=== PATIENT | male | born 1985 | race African-American/Black ===

== ENCOUNTER 2024-06-03 11:12 | Outpatient (REF) | payer MEDICAID, SELFPAY ==
[2024-06-03 13:32] LABS: Appearance Urine Clear; Color Urine Yellow; Glucose Urine UA Negative (Negative); Leukocyte Esterase Urine Negative (Negative); Nitrite Urine Negative (Negative); PH 5.5 (5.0-9.0); Urine Blood Negative (Negative); Urine Ketones Negative (Negative); Urine Protein Negative (Neg-Trace)
[2024-06-03 13:39] LABS: Bacteria Urine None Seen (None Seen); Hyaline Casts Urine 0-2 /LPF (0-2); RBC Urine 0-2 /HPF (0-2); WBC Urine 0-5 /HPF (0-5)
[2024-06-03 14:34] LABS: Alanine Aminotransferase 18 U/L (0-40); Albumin Level 4.5 g/dL (3.5-5.0); Alkaline Phosphatase 70 U/L (39-117); Anion Gap 13 (12-20); Aspartate Amino Transferase 20 U/L (5-37); Bilirubin Total 0.4 mg/dL (0.0-1.0); Blood Urea Nitrogen 15 mg/dL (9-16); Calcium 10.1 mg/dL (8.4-10.2); Carbon Dioxide 26 mmol/L (22-29); Chloride 103 mmol/L (96-108); Estimated Glomerular Filt Rate > 60; Glucose Random 82 mg/dL (60-115); Potassium 3.8 mmol/L (3.3-5.1); Sodium 138 mmol/L (135-145); Total Protein 7.6 g/dL (6.5-8.0)
[2024-06-03 14:39] LABS: TSH reflex Free T4 1.61 uIU/mL (0.32-4.0)
== END 2024-06-03 11:13 | disposition home or self-care (01) ==
LOC: HO.HHCL 11:12
PROVIDERS: Visit Provider Internal Medicine
DX: I10 Essential (primary) hypertension (principal); K59.00 Constipation, unspecified
CPT/HCPCS: 36415; 80053; 81001; 84443

== ENCOUNTER 2025-06-24 10:23 | Outpatient (REF) | payer MEDICAID, SELFPAY ==
--- OUTSIDE RECORDS SUMMARY | 2025-06-24 09:15 | XMS_ITS | Encounter Summary ---
Author Organization [employer] Address [address] [place] [address] [address], [place] [address] Care Team Providers Care Hemming And Tacking Machine Operator Name Role Phone Brent Dinero Primary Care Provider [phone] Reason for Referral * Hospital - Outpatient (Routine) - Authorized Specialty Diagnoses / Procedures Referred By Apurva reyes Referred To Contact Diagnoses FRANCHESCA (obstructive sleep apnea) Procedures Polysomnography Brent Dinero FNP [address] [place] [address] Phone: tel: fax: [address] [address] Phone: tel: fax: Referral ID Status Reason Start Date Expiration Date V isits Requested Visits Authorized [id number] Authorized 06/24/2025 06/24/2026 1 1 * Consultation (Routine) - Authorized Specialty Diagnoses / Procedures Referred By Apurva reyes Referred To Contact Nutrition Diagnoses Encounter for weight management Brent Dinero FNP [address] [place] [address] Phone: tel: fax: Referral ID Status Reason Start Date Expiration Date Visits Requested Visits Authorized [id number] Authorized Consult and Treat 06/24/2025 06/24/2026 1 1 * Consultation (Routine) - Pending Review Specialty Diagnoses / Procedures Referred By Apurva reyes Referred To Contact Sleep Medicine Diagnoses FRANCHESCA (obstructive sleep apnea) Brent Dinero FNP [address] [place] [address] Phone: tel: fax: [facility] [address], [address] [place] [address] Phone: tel: fax: Referral ID Status Reason Start Date Expiration Date Visits Requested Visits Authorized [id number] Pending Review Specialty Services Required 06/24/2025 06/24/2026 1 1 Encounter Details Date Type Department Care Team (Late st Contact Info) Description 06/24/2025 9:15 AM EST Office Visit [facility] MEDICINE [address] [place] [address] Brent Dinero FNP [address] [place] [address] Encounter to establish care (Primary Dx); Primary hypertension; Episodic cluster headache, not intractable; FRANCHESCA (obstructive sleep apnea); Essential hypertension, benign; Encounter for weight management; Tobacco use disorder; Benign prostatic hyperplasia with weak urinary stream Social History Tobacco Use Types Packs/Day Years Used Date Smoking Tobacco: Every Day Cigarettes Passive Smoke Exposure: Current Smokeless Tobacco: Never Tobacco Cessation:Ready to Q uit: Not Asked; Counseling Given: Not Answered Alcohol Answer Date Recorded How often do you have a drink containing alcohol ? 0 06/24/2025 How many drinks containing a lcohol do you have on a typical day when you are drinking? 0 06/24/2025 How often do you have six or more drinks on one occasion? 0 06/24/2025 Depression Answer Date Recorded Patient Health Questionnaire-9 Score 0 06/24/2025 Patient Health Questionnaire-9 Score 0 06/24/2025 Last PHQ-9: Questionnaire Data Not on file 1 08/25/2024 Housing Stability Answer Date Recorded What is your housing situation today? I have kiara jaime 06/15/[address] you li ve. Do you have problems with any of the following? None of the above 06/15/2025 Food Insecurity Answer Date Recorded Within the past 12 months, y ou worried that your food would run out before you got money to buy more: Never True 06/15/2025 Within the past 12 months,th e food you bought just didn't last and you didn't have enough money to get more: Never True Transportation Answer Date Recorded In the past 12 months, has l ack of transportation kept you from medical appts, meetings, work or from getting things needed for daily living? No 06/15/2025 Utilities Answer Date Recorded In the past 12 months, has t he electric, gas, oil or water company threatened to shut off services in your home? No 06/15/2025 Depression Answer Date Recorded Patient Health Questionnaire-2 Score 0 06/24/2025 Internet Access Answer Date Recorded Internet Access Q1 No 06/24/2025 Internet Access Q2 I do not want or need it 09/2024 Sex and Gender Information Value Date Recorded Sex Assigned at Male 05/19/2024 9:50 AM EDT Legal Sex Male 2:09 PM EDT Gender Identity Male 05/19/2024 9:50 AM EDT Sexual Orientation Straight 06/03/2024 9: 59 AM EST documented as of this encounter Last Filed Vital Signs Vital Sign Reading Time Taken Comments Blood Pressure 149/115 06/24/2025 9:38 AM EST Pulse 74 06/24/2025 9:38 AM EST Temperature 37 C (98.6 F) 06/24/2025 9:38 AM EST Respiratory Rate 12 06/24/2025 9:38 AM EST Oxygen Saturation 97% 06/24/2025 9:38 AM EST Inhaled Oxygen Concentration - - Weight 94.4 kg (208 lb 3.2 oz) 06/24/2025 9:38 A M EST Height 175.3 cm (5' 9 ) 06/24/2025 9:38 AM EST Body Mass Index 30.75 06/24/2025 9:38 AM EST documented in this encounter Functional Status * Over the past 2 weeks, how often have you been bothered by any of the following problems? Question Answer Date of Assessment Author Patient Health Questionnaire -2 Score 0 06/24/2025 9:39 AM Geo Ricks [place] * Little interest or pleasure in doing things Answer Date of Assessment Author Not at all 06/24/2025 9:39 AM Divine Ricks [place] * Feeling down, depressed, or hopeless Answer Date of Assessment Author Not at all 06/24/2025 9:39 AM Divine Ricks [place] * Trouble falling or staying asleep, or sleeping too much Answer Date of Assessment Author Not at all 06/24/2025 9:39 AM Divine Ricks [place] * Feeling tired or having little energy Answer Date of Assessment Author Not at all 06/24/2025 9:39 AM Divine Ricks [place] * Poor appetite or overeating Answer Date of Assessment Author Not at all 06/24/2025 9:39 AM Divine Ricks [place] * Feeling bad about yourself - or that you are a failure or have let yourself or your family down Answer Date of Assessment Author Not at all 06/24/2025 9:39 AM Divine Ricks [place] * Trouble concentrating on things, such as reading the newspaper or watching television Answer Date of Assessment Author Not at all 06/24/2025 9:39 AM Divine Ricks [place] * Moving or speaking so slowly that other people could have noticed? Or the opposite - being so fidgety or restless that you have been moving around a lot more than usual. Answer Date of Assessment Author Not at all 06/24/2025 9:39 AM Divine Ricks [place] * Thoughts that you would be better off or hurting yourself in some way Answer Date of Assessment Author Not at all 06/24/2025 9:39 AM Divine Ricks [place] * Patient Health Questionnaire-9 Score Answer Date of Assessment Author 0 06/24/2025 9:39 AM Divine Ricks [place] * Over the last 2 weeks, how often have you been bothered by any of the following problems? Question Answer Date of Assessment Author Feeling nervous, anxious, or on edge 0 06/24/2025 9:39 AM Geo Ricks [place] Not being able to stop or co ntrol worrying 0 06/24/2025 9:39 AM Geo Ricks [place] Worrying too much about diff erent things 0 06/24/2025 9:39 AM EST Geo Hermosillo [place] Trouble relaxing 0 06/24/2025 9:39 AM EST Areli maurerGeo rosario [place] Being so restless that it is hard to sit still 0 06/24/2025 9:39 AM EST Geo Hermosillo [place] Becoming easily annoyed or irritable 0 06/24/2025 9:39 AM Geo Ricks [place] Feeling afraid as if somethi ng awful might happen 0 06/24/2025 9:39 AM EST Geo Hermosillo [place] DAMARIS-7 Total Score 0 06/24/2025 9:39 AM Geo Ricks [place] documented as of this encounter Miscellaneous Notes * Assessment & Plan Note - CONNIE Osborne - 06/24/2025 9:15 AM EST Associated Problem(s): Essential hypertension, benign Will address at next visit. Orders: amLODIPine (Norvasc) 5 MG tablet; Take 1 tablet (5 mg) by mouth Once per day. Comprehensive Metabolic Panel; Future documented in this encounter Plan of Treatment Upcoming Encounters Date Type Department Care Team (Late st Contact Info) Description 07/22/2025 3:30 PM EST Office Visit [facility] MEDICINE [address] [place] [address] Bernt Dinero FNP [address] [place] [address] Scheduled Orders Name Type Priority Associated Diagnoses Orde r Schedule POCT Glucose Point of Care Testing Routine Encounter to establish care Ordered: 06/24/2025 POCT Hgb A1c Point of Care Testing Routine Encounter to establish care Ordered: 06/24/2025 CBC auto differential Lab Routine Encounter to establish care Expected: 06/24/2025 (Approximate), Expires: 06/24/2026 Polysomnography [facility] Routine FRANCHESCA (obstructive sleep apnea) Expected: 06/24/2025 (Approximate), Expires: 06/24/2026 Scheduled Referrals Name Type Priority Associated Diagnoses Orde r Schedule Referral to Sleep Medicine Outpatient Referral Routine FRANCHESCA (obstructive sleep apnea) Expected: 06/24/2025 (Approximate), Expires: 06/24/2026 Referral to Nutrition Therapy Outpatient Referral Routine Encounter for weight management Expected: 06/24/2025 (Approximate), Expires: 06/24/2026 documented as of this encounter Procedures Procedure Name Priority Date/Time Associated Diagnosis Comments CBC WITH AUTO DIFFERENTIAL Routine 06/24/2025 10:28 AM EST Encounter to establish care LIPID PANEL, STANDARD Routine 06/24/2025 10:28 AM EST Encounter to establish care COMPREHENSIVE METABOLIC PANEL Routine 06/24/2025 10:28 AM EST Essential hypertension, benign documented in this encounter Results * (ABNORMAL) Comprehensive Metabolic Panel (06/24/2025 10:28 AM EST) Sodium 139 135 - 145 mmol/L [facility] Potassium 3.9 3.3 - 5.1 mmol/L [facility] Chloride 104 96 - 108 mmol/L [facility] Carbon Dioxide 30(H) 22 - 29 mmol/L [facility] Anion Gap 9(L) 12 - 20 [facility] Urea Nitrogen (BUN) 14 9 - 16 mg/dL [facility] Creatinine, Serum 1.03 0.5 - 1.4 mg/dL [facility] Estimated Glomerular Filt Rate >60 [facility] Comment:Chronic Kidney Disea se: Estimated GFR < 60 mL/min/[id number] Kidney Disease: Estimated GFR < 15 mL/min/1.73m2 Glucose 85 60 - 115 mg/dL [facility] Calcium 10.1 8.4 - 10.2 mg/dL [facility] Bilirubin, Total 0.7 0.0 - 1.0 mg/dL [facility] Aspartate Amino Transferase 22 5 - 37 U/L [facility] Alanine Aminotransferase 19 0 - 40 U/L [facility] Total Protein 7.8 6.5 - 8.0 g/dL [facility] Albumin Level 5.0 3.5 - 5.0 g/dL [facility] Alkaline Phosphatase 72 39 - 117 U/L [facility] Blood Venous blood specimen / Unknown 06/24/2025 10:28 AM EST 06/24/2025 11:22 AM EST Brent Dinero [facility] BLOOD ORDERABLES Final Re sult Performing Organization Address [facility] de Phone Number [facility] [address] [place] [address] [phone] * (ABNORMAL) Lipid Panel, Standard (06/24/2025 10:28 AM EST) Triglycerides 166(H) <150 mg/dL [facility] Comment:Desirable Triglyceri de: less than 150 mg/dLBorderline High Triglyceride 150-199 mg/dLHigh Triglyceride: 200-499 mg/dLVery High Triglyceride: greater than or equal to 5OO mg/dL Cholesterol 232(H) <200 mg/dL [facility] Comment:Desirable Cholestero l: less than 200 mg/dLBorderline High Cholesterol: 200-239 mg/dLHigh Cholesterol: greater than 239 mg/dL LDL Cholesterol Calculated 153(H) <100 mg/dL [facility] Comment:Desirable LDL: less than 100 mg/dLNear Optimal/Above Optimal LDL: 110- 129 mg/dLBorderline High LDL: 130-159 mg/dLHigh LDL: 160-189 mg/dLVery High LDL: greater than or equal to 190 mg/dL HDL Cholesterol 46 >40 mg/dL [facility] Comment:Desirable HDL: great er than 40 mg/dL Note: This HDL assay may give artificially low results in patients with liver disease. Blood Venous blood specimen / Unknown 06/24/2025 10:28 AM EST 06/24/2025 11:22 AM EST Brent Dinero [facility] BLOOD ORDERABLES Final Re sult Performing Organization Address City/[facility]/ZIP Co de Phone Number [facility] [address] [place] [address] [phone] * (ABNORMAL) CBC auto differential (06/24/2025 10:28 AM EST) White Blood Count 6.2 4.8 - 10.8 X10*3/uL [facility] Red Blood Count 4.82 4.60 - 5.80 X10*6/uL [facility] Hemoglobin 15.1 14.0 - 18.0 g/dl [facility] Hematocrit 43.4 42.0 - 52.0 % [facility] Mean Corpuscular Volume 90.0 80.0 - 98.0 fL [facility] Mean Corpuscular Hemoglobin 31.3 27.0 - 33.0 pg [facility] Mean Corpuscular HGB Conc 34.8 31.0 - 36.0 g/dl [facility] Red Cell Distribution Width 12.1 11.0 - 16.0 % [facility] Platelet Count 166 160 - 400 X10*3/uL [facility] Mean Platelet Volume 12.2 9.4 - 12.4 fL [facility] Neutrophils Percent Auto 38.7(L) 45 - 73 % [facility] Imm Gran Pct Auto 0.3 0.0 - 0.4 % [facility] Lymphocytes Percent Auto 46.8(H) 20 - 40 % [facility] Monocytes Percent Auto 10.6 2 - 11 % [facility] Eosinophils Percent Auto 2.8 0 - 4 % [facility] Basophils Percent Auto 0.8 0 - 2 % [facility] NRBC Pct Auto 0.0 0.0 - 0.2 /100WBC [facility] Neutrophils Absolute Auto 2.4 2.0 - 8.3 x10*3/uL [facility] Imm Gran Abs Auto 0.02 0.00 - 0.03 X10*3/uL [facility] Lymphocytes Absolute Auto 2.9 1.2 - 4.9 X10*3/uL [facility] Monocytes Absolute Auto 0.7 0.1 - 1.2 X10*3/uL [facility] Eosinophils Absolute Auto 0.2 0.0 - 0.4 X10*3/uL [facility] Basophils Absolute Auto 0.1 0.0 - 0.2 X10*3/uL [facility] NRBC Abs Auto 0.000 0.0 - 0.012 X10*3/uL [facility] Blood Venous blood specimen / Unknown 06/24/2025 10:28 AM EST 06/24/2025 11:22 AM EST Brent ROSALES LAB BLOOD ORDERABLES Final Re sult [facility] [address] [place] [address] [phone] documented in this encounter Visit Diagnoses Diagnosis Encounter to establish care- Primary Primary hypertension Unspecified essential hypertension Episodic cluster headache, not intractable FRANCHESCA (obstructive sleep apnea) Obstructive sleep apnea (adult) (pediatric) Essential hypertension, benign Encounter for weight management Tobacco use disorder Benign prostatic hyperplasia with weak urinary stream documented in this encounter Additional Health Concerns Assessment Noted Time PHQ-9 Depression Total Score: 0 06/24/20 9:39 AM EST documented as of this encounter Care Teams Hemming And Tacking Machine Operator Relationship Specialty Start Date End Date Brent Dinero FNP [address] [place] [phone] PCP - General Family Medicine 06/24/25 documented as of this encounter
[2025-06-24 11:25] LABS: MANUAL DIFF FLAG NO
[2025-06-24 11:27] LABS: Hematocrit 43.4 % (42.0-52.0); Hemoglobin 15.1 g/dl (14.0-18.0); Imm Gran Abs Auto 0.02 X10*3/uL (0.00-0.03); Imm Gran Pct Auto 0.3 % (0.0-0.4); Lymphocytes Absolute Auto 2.9 X10*3/uL (1.2-4.9); Mean Corpuscular HGB Conc 34.8 g/dl (31.0-36.0); Mean Corpuscular Hemoglobin 31.3 pg (27.0-33.0); Mean Corpuscular Volume 90.0 fL (80.0-98.0); NRBC Abs Auto 0.000 X10*3/uL (0.0-0.012); NRBC Pct Auto 0.0 /100WBC (0.0-0.2); Platelet Count 166 X10*3/uL (160-400); Red Blood Count 4.82 X10*6/uL (4.60-5.80); White Blood Count 6.2 X10*3/uL (4.8-10.8)
[2025-06-24 11:39] LABS: Alanine Aminotransferase 19 U/L (0-40); Albumin Level 5.0 g/dL (3.5-5.0); Alkaline Phosphatase 72 U/L (39-117); Anion Gap 9 (12-20); Aspartate Amino Transferase 22 U/L (5-37); Blood Urea Nitrogen 14 mg/dL (9-16); Calcium 10.1 mg/dL (8.4-10.2); Carbon Dioxide 30 mmol/L (22-29); Chloride 104 mmol/L (96-108); Cholesterol 232 mg/dL (<200); Estimated Glomerular Filt Rate > 60; HDL Cholesterol 46 mg/dL (>40); Potassium 3.9 mmol/L (3.3-5.1); Sodium 139 mmol/L (135-145); Total Protein 7.8 g/dL (6.5-8.0); Triglycerides 166 mg/dL (<150)
--- OUTSIDE RECORDS SUMMARY | 2025-06-24 11:55 | XMS_ITS | Encounter Summary ---
Author Organization [employer] Address [address] [facility] [address] [facility] 7 [place] [address] Care Team Providers Care Head Mixer Name Role Phone Unavailable Primary Care Provider Unavailabl e Reason for Visit * Reason Onset Date Comments Chart Prep 06/22/2025 Encounter Details Date Type Department Care Team (Late st Contact Info) Description 06/22/2025 Telephone [facility] [address], [place] [phone] Brent Dinero FNP [address] [place] [address] Chart Prep Social History Tobacco Use Types Packs/Day Years Used Date Smoking Tobacco: Every Day Cigarettes Passive Smoke Exposure: Past Smokeless Tobacco: Never Housing Stability Answer Date Recorded What is your housing situation today? I have kiarabaldo jaime 06/15/[address] you [...] off services in your home? No 06/15/2025 Internet Access Answer Date Recorded Internet Access Q1 Yes 06/15/2025 Internet Access Q2 Not on file 06/15/2025 Sex and Gender Information Value Date Recorded Sex Assigned at Male 05/19/2024 9:50 AM EDT Legal Sex Male 2:09 PM EDT Gender Identity Male 05/19/2024 9:50 AM EDT Sexual Orientation Straight 06/03/2024 9: 59 AM EST documented as of this encounter Miscellaneous Notes * Telephone Encounter - Geo Hermosillo [place] - 06/22/2025 10:48 AM EST Chart Prep Labs: not applicable Images: not applicable Referrals: not applicable Vaccines due: Covid, Flu, Hep B, HPV, and DTAP Screenings: Alcohol/Substance Use Screening Overdue care gaps: SBIRT, PHQ-9, DAMARIS-7, Disability screen, and Tobacco documented in this encounter Plan of Treatment Upcoming Encounters Date Type Department Care Team (Late st Contact Info) Description 07/22/2025 3:30 PM EST Office Visit [facility] [address] [place] [address] Brent Dinero FNP [address] [place] [address] documented as of this encounter Visit Diagnoses Not on filedocumented in this encounter
--- OUTSIDE RECORDS SUMMARY | 2025-06-24 11:55 | XMS_ITS | Clinical Summary ---
Author Organization [employer] Address [address] [facility] 7[address] [place] [address] Care Team Providers Care Math Instructor Name Role Phone Brent Dinero CONNIE Primary Care Provider [phone] Allergies Active Allergy Reactions Criticality Noted Date Comments Shellfish Allergy Anaphylaxis High 06/24/2025 Medications psyllium (Metamucil Smooth Texture) 58.6 % powderIndicatio ns:Constipation , unspecified constipation type Take 1 heaping teaspoon of water mixed in 8 oz of water once daily 283 g 11 024 Active Blood Pressure kit Check BP in each arm once daily. Write down results. Call doctor if blood pressure is consistently over 150/90. 1 kit Active Ventolin HFA 108 (90 Base) MCG/ACT inhaler USE 1 PUFF EVERY 3 TO 4 HOURS NEEDED FOR SHORTNESS OF BREATH 024 Active Sodium Fluoride 1.1 % creamIndication s:Dental caries Daisy teeth for 2 minutes, morning and night. Spit, do not rinse. Do not eat or drink anything for 30 minutes following use. 112 g 3 025 Active amLODIPine (Norvasc) 5 MG tabletIndicatio ns:Essential hypertension, benign Take 1 tablet (5 mg) by mouth Once per day. 30 tablet 1 025 2025 Active amLODIPine (Norvasc) 2.5 MG tabletIndicatio ns:Essential hypertension, benign Take 1 tablet (2.5 mg) by mouth Once per day. 30 tablet 11 024 2024 Discontinued(R eorder (will not trigger notification to Pharmacy)) Active Problems Problem Noted Date Diagnosed Date Essential hypertension, benign 06/03/2024 Assessment & Plan (06/24/2025 10:23 AM EST): Will address at next visit. Orders: amLODIPine (Norvasc) 5 MG tablet; Take 1 tablet (5 mg) by mouth Once per day. Comprehensive Metabolic Panel; Future Constipation 06/03/2024 Bilateral sciatica 06/03/2024 Obesity (BMI 30-39.9) 06/03/2024 Encounters Date Type Department Care Team Description 06/24/2025 9:15 AM EST Office Visit [facility] MEDICINE [address] [place] [phone] Brent Dinero FNP Encounter to establish care (Primary Dx); Primary hypertension; Episodic cluster headache, not intractable; FRANCHESCA (obstructive sleep apnea); Essential hypertension, benign; Encounter for weight management; Tobacco use disorder; Benign prostatic hyperplasia with weak urinary stream 06/24/2025 Travel 06/23/2025 Travel 06/22/2025 Telephone [facility] MEDICINE [address] [place] [phone] Brent Dinero FNP Chart Prep 06/15/2025 Patient Outreach [facility] [address] [place], [place] [phone] Brent Dinero FNP Transition Of Care (Tcm) (SDOH negative, Tobacco screening positive. ) 04/20/2025 Telephone [facility] MEDICINE [address] [place] [phone] Siomn Fernandez MD 04/17/2025 Telephone [facility] MEDICINE [address] [place] [phone] Simon Fernandez MD from Last 3 Months Social History Tobacco Use Types Packs/Day Years [...] Orientation Straight 06/03/2024 9: 59 AM EST Last Filed Vital Signs Vital Sign Reading [...] Mass Index 30.75 06/24/2025 9:38 AM EST Plan of Treatment Upcoming Encounters Date Type Department Care Team (Late st Contact Info) Description 07/22/2025 3:30 PM EST Office Visit [facility] MEDICINE [address] [place], [place] [phone] Brent Dinero FNP [address] [place], [place] [phone] Health Maintenance Due Date Last Done Comments HIV Screening 1986 Family Planning (PISQ) 2001 HPV Vaccines (1 - Male 3-dos e series) 2001 Hepatitis C Screening 02/25/2004 DTaP/Tdap/Td Vaccines (1 - Tdap) 2005 Hepatitis B Vaccines (1 of 3 - 19+ 3-dose series) 2005 Pneumococcal Vaccine: Pediatrics (0 to 5 Years) and At-Risk Patients (6 to 49) Years (1 of 2 - PCV) 2005 Dental Oral Exam 02/10/2025 08/12/2024 Dental Prophylaxis 02/10/2025 08/12/2024 COVID-19 Vaccine (1 - 2024-2 6 season) 2025 Influenza Vaccine (#1) 2025 Dental X-Ray: Bitewings 08/13/2025 08/12/2024 Alcohol/Substance Use Screening 06/24/2026 06/24/2025 Depression Screening 06/24/2026 06/24/2025, 06/24/2025 Disability Screening 06/24/2026 06/24/2025 SDOH Screening 06/24/2026 06/24/2025 Tobacco Screening 06/24/2026 06/24/2025 Dental X-Ray: Full Mouth 08/13/2027 08/12/2024 Lipid Panel 06/24/2030 06/24/2025 Zoster Vaccines (1 of 2) 02/25/2036 RSV Patients and Patients Aged 60 years or older (1 - 1-dose 75+ series) 2061 HIB Vaccines Aged Out No longer eligi ble based on patient's age to complete this topic Hepatitis A Vaccines Aged Out No long er eligible based on patient's age to complete this topic IPV Vaccines Aged Out No longer eligi ble based on patient's age to complete this topic Meningococcal B Vaccine Aged Out No l onger eligible based on patient's age to complete this topic Meningococcal Vaccine Aged Out No nikole judith eligible based on patient's age to complete this topic RSV under 20 months Aged Out No longe r eligible based on patient's age to complete this topic Rotavirus Vaccines Aged Out No longer eligible based on patient's age to complete this topic Procedures Procedure Name Priority Date/Time Associated Diagnosis Comments COMPREHENSIVE METABOLIC PANEL Routine 06/24/2025 10:28 AM EST Essential hypertension, benign LIPID PANEL, STANDARD Routine 06/24/2025 10:28 AM EST Encounter to establish care CBC WITH AUTO DIFFERENTIAL Routine 06/24/2025 10:28 AM EST Encounter to establish care PROPHYLAXIS - ADULT Routine 08/12/2024 1 0:00 AM EST Gingivitis Dental caries INTRAORAL - COMPLETE SERIES OF RADIOGRAPHIC IMAGES Routine 08/12/2024 10:00 AM EST Gingivitis Dental caries COMPREHENSIVE ORAL EVALUATION - NEW OR ESTABLISHED PATIENT Routine 08/12/2024 10:00 AM EST Gingivitis Dental caries from Last 3 Months or Most Recently Relevant to Health Maintenance Results * (ABNORMAL) CBC auto differential (06/24/2025 10:28 AM EST) White Blood Count 6.2 4.8 - 10.8 X10*3/uL [facility] Red Blood Count 4.82 4.60 - 5.80 X10*6/uL [facility] Hemoglobin 15.1 14.0 - 18.0 g/dl [facility] Hematocrit 43.4 42.0 - 52.0 % [facility] Mean Corpuscular Volume 90.0 80.0 - 98.0 fL [facility] Mean Corpuscular Hemoglobin 31.3 27.0 - 33.0 pg [facility] Mean Corpuscular HGB Conc 34.8 31.0 - 36.0 g/dl [facility] Red Cell Distribution Width 12.1 11.0 - 16.0 % [facility] Platelet Count 166 160 - 400 X10*3/uL [facility] Mean Platelet Volume 12.2 9.4 - 12.4 fL [facility] Neutrophils Percent Auto 38.7(L) 45 - 73 % [facility] Imm Gran Pct Auto 0.3 0.0 - 0.4 % [facility] Lymphocytes Percent Auto 46.8(H) 20 - 40 % [facility] Monocytes Percent Auto 10.6 2 - 11 % [facility] Eosinophils Percent Auto 2.8 0 - 4 % [facility] Basophils Percent Auto 0.8 0 - 2 % [facility] NRBC Pct Auto 0.0 0.0 - 0.2 /100WBC [facility] Neutrophils Absolute Auto 2.4 2.0 - 8.3 x10*3/uL [facility] Imm Gran Abs Auto 0.02 0.00 - 0.03 X10*3/uL [facility] Lymphocytes Absolute Auto 2.9 1.2 - 4.9 X10*3/uL [facility] Monocytes Absolute Auto 0.7 0.1 - 1.2 X10*3/uL [facility] Eosinophils Absolute Auto 0.2 0.0 - 0.4 X10*3/uL [facility] Basophils Absolute Auto 0.1 0.0 - 0.2 X10*3/uL [facility] NRBC Abs Auto 0.000 0.0 - 0.012 X10*3/uL [facility] Blood Venous blood specimen / Unknown 06/24/2025 10:28 AM EST 06/24/2025 11:22 AM EST us Brent Dinero INVENTORY TECHNICIAN LAB BLOOD ORDERABLES Final Re sult [facility] [address] [place] [address] [phone] * (ABNORMAL) Lipid Panel, Standard (06/24/2025 10:28 AM EST) Triglycerides 166(H) <150 mg/dL [facility] Comment:Desirable Triglyceri de: less than 150 mg/dLBorderline High Triglyceride 150-199 mg/dLHigh Triglyceride: 200-499 mg/dLVery High Triglyceride: greater than or equal to 5OO mg/dL Cholesterol 232(H) <200 mg/dL [facility] Comment:Desirable Cholestero l: less than 200 mg/dLBorderline High Cholesterol: 200-239 mg/dLHigh Cholesterol: greater than 239 mg/dL LDL Cholesterol Calculated 153(H) <100 mg/dL [facility] Comment:Desirable LDL: less than 100 mg/dLNear Optimal/Above Optimal LDL: 110- 129 mg/dLBorderline High LDL: 130-159 mg/dLHigh LDL: 160-189 mg/dLVery High LDL: greater than or equal to 190 mg/dL HDL Cholesterol 46 >40 mg/dL [facility] Comment:Desirable HDL: great er than 40 mg/dL Note: This HDL assay may give artificially low results in patients with liver disease. Blood Venous blood specimen / Unknown 06/24/2025 10:28 AM EST 06/24/2025 11:22 AM EST us Brent Dinero INVENTORY TECHNICIAN LAB BLOOD ORDERABLES Final Re sult [facility] [address] [place] [address] [phone] * (ABNORMAL) Comprehensive Metabolic Panel (06/24/2025 10:28 AM EST) Sodium 139 135 - 145 mmol/L [facility] Potassium 3.9 3.3 - 5.1 mmol/L [facility] Chloride 104 96 - 108 mmol/L [facility] Carbon Dioxide 30(H) 22 - 29 mmol/L [facility] Anion Gap 9(L) 12 - 20 [facility] Urea Nitrogen (BUN) 14 9 - 16 mg/dL [facility] Creatinine, Serum 1.03 0.5 - 1.4 mg/dL [facility] Estimated Glomerular Filt Rate >60 [facility] Comment:Chronic Kidney Disea se: Estimated GFR < 60 mL/min/[id number] Kidney Disease: Estimated GFR < 15 mL/min/1.73m2 Glucose 85 60 - 115 mg/dL [facility] Calcium 10.1 8.4 - 10.2 mg/dL [facility] Bilirubin, Total 0.7 0.0 - 1.0 mg/dL [facility] Aspartate Amino Transferase 22 5 - 37 U/L [facility] Alanine Aminotransferase 19 0 - 40 U/L [facility] Total Protein 7.8 6.5 - 8.0 g/dL [facility] Albumin Level 5.0 3.5 - 5.0 g/dL [facility] Alkaline Phosphatase 72 39 - 117 U/L [facility] Blood Venous blood specimen / Unknown 06/24/2025 10:28 AM EST 06/24/2025 11:22 AM EST Brent Dinero INVENTORY TECHNICIAN LAB BLOOD ORDERABLES Final Re sult Performing Organization Address City/State/[facility] Co de Phone Number [facility] [address] [place] [phone] from Last 3 Months Insurance [facility] MEDICAID STAND ADULT Care Teams Math Instructor Relationship Specialty Start Date End Date Brent Dinero FNP [address] [place] [phone] PCP - General Family Medicine 06/24/25
--- OUTSIDE RECORDS SUMMARY | 2025-06-24 11:55 | XMS_ITS | Encounter Summary ---
Author Organization [employer] Address [address] [facility] [address] [place] [address] Care Team Providers Care Practice Administrator Name Role Phone Brent Dinero CONNIE Primary Care Provider [phone] Encounter Details Date Type Department Care Team (Latest Contact Info) Description 06/24/2025 Travel Social History Tobacco Use Types Packs/Day Years Used Date Smoking Tobacco: Every Day Cigarettes Passive Smoke Exposure: Current Smokeless Tobacco: Never Alcohol Answer Date Recorded How often do [...] AM EST documented as of this encounter Functional Status * Over the [...] Not at all 06/24/2025 9:39 AM Divine Ricsk [place] * Patient Health Questionnaire-9 Score Answer [...] diff erent things 0 06/24/2025 9:39 AM Geo Ricks [place] Trouble relaxing 0 06/24/2025 9:39 AM Geo Diaz [place] Being so restless that it is hard to sit still 0 06/24/2025 9:39 AM Geo Ricks [place] Becoming easily annoyed or irritable 0 06/24/2025 9:39 AM Geo Ricks [place] Feeling afraid as if somethi ng awful might happen 0 06/24/2025 9:39 AM Geo Ricks [place] DAMARIS-7 Total Score 0 06/24/2025 9:39 AM Geo Ricks [place] documented as of this encounter Plan of Treatment Upcoming Encounters Date Type Department Care Team (Late st Contact Info) Description 07/22/2025 3:30 PM EST Office Visit [facility] MEDICINE [address] [place] [phone] Brent Dinero FNP [address] [place] [address] documented as of this encounter Visit Diagnoses Not on filedocumented in this encounter Additional Health Concerns Assessment Noted Time PHQ-9 Depression Total Score: 0 06/24/20 9:39 AM EST documented as of this encounter Care Teams Practice Administrator Relationship Specialty Start Date End Date Brent Dinero FNP [address] [place] [phone] PCP - General Family Medicine 06/24/25 documented as of this encounter
--- OUTSIDE RECORDS SUMMARY | 2025-06-24 11:55 | XMS_ITS | Clinical Summary ---
Author Organization [facility] [place] [address] Care Team Providers Care Line Mover Name Role Phone Unavailable Primary Care Provider Unavailabl e Social History Tobacco Use Types Packs/Day Years Used Date Smoking Tobacco: Never Assessed Sex and Gender Information Value Date Recorded Sex Assigned at Not on file Legal Sex Male 1:14 PM EST Gender Identity Not on file Sexual Orientation Not on file Plan of Treatment Health Maintenance Due Date Last Done Comments DTaP,Tdap,and Td Vaccines (1 - Tdap) 2005 Hepatitis B Vaccines (1 of 3 - 19+ 3-dose series) 2005 HPV Vaccines (1 - 3-dose SCD M series) 2013 Cholesterol Screening (Lipid Panel) 03/17/2024 HIV Screening 03/17/2024 Hepatitis C Screening 03/17/2024 Social Influencers of Health Screening 03/17/2024 Depression Screening 07/23/2024 COVID-19 Vaccine ( - 2024-2 6 season) 2025 Influenza Vaccine (#1) 2025 RSV Immunization Adult Patie nts (1 - 1-dose 75+ series) 2061 HIB Vaccines Aged Out No longer eligi ble based on patient's age to complete this topic Hepatitis A Vaccines Aged Out No long er eligible based on patient's age to complete this topic IPV Vaccines Aged Out No longer eligi ble based on patient's age to complete this topic MMR Vaccines Aged Out No longer eligi ble based on patient's age to complete this topic Meningococcal ACWY Vaccine Aged Out N o longer eligible based on patient's age to complete this topic Meningococcal B Vaccine Aged Out No l onger eligible based on patient's age to complete this topic Pneumococcal Vaccine: Pediat rics (0 to 5 Years) and At-Risk Patients (6 to 49 Years) Aged Out No longer eligible b ased on patient's age to complete this topic RSV Immunization Patients Un bill 20 months Aged Out No longer eligible b ased on patient's age to complete this topic Varicella Vaccines Aged Out No longer eligible based on patient's age to complete this topic
--- OUTSIDE RECORDS SUMMARY | 2025-06-24 11:55 | XMS_ITS | Encounter Summary ---
Author Organization [employer] Address [address] [facility] [address] [place] [address] Care Team Providers Care Animal Impersonator Name Role Phone Unavailable Primary Care Provider Unavailabl e Encounter Details Date Type Department Care Team (Latest Contact Info) Description 06/23/2025 Travel Social History Tobacco Use Types Packs/Day Years Used Date Smoking Tobacco: Every Day Cigarettes Passive Smoke Exposure: Past Smokeless Tobacco: Never Alcohol Answer Date Recorded [...] AM EST documented as of this encounter Plan of Treatment Upcoming Encounters Date Type Department Care Team (Late st Contact Info) Description 07/22/2025 3:30 PM EST Office Visit [facility] MEDICINE [address] [place] [address] [phone] Brent Dinero FNP [address] [place], [place] [phone] documented as of this encounter Visit Diagnoses Not on filedocumented in this encounter
== END 2025-06-24 10:24 | disposition home or self-care (01) ==
LOC: HO.HHCL 10:23
DX: I10 Essential (primary) hypertension (principal); Z76.89 Persons encountering health services in other specified circumstances
CPT/HCPCS: 36415; 80053; 80061; 85025